=== PATIENT | female | born 2000 | race Two or more races ===

== ENCOUNTER → 2024-08-16 | Outpatient (CLI) | payer BC, MEDICAID, SELFPAY ==
--- NOTE | 2024-08-16 | XR_ITS ---
Examination: Sinus series 4 views TECHNIQUE: Corby Davila lateral submentovertex sinus series 4 views Date and time: August 16, 2024 0756 hours INDICATIONS: Headaches dizziness sinus pressure and pain one month. FINDINGS: Significant opacity in the frontal ethmoid air cells Mild mucosal thickening maxillary antra No fluid levels No retention cysts IMPRESSION: Chronic sinusitis as above, prominent in the frontal and ethmoid air cells
== END | disposition home or self-care (01) ==
PROVIDERS: PCP Nurse Practitioner Family; Referring Provider Nurse Practitioner Family; Visit Provider Nurse Practitioner Family
DX: J32.9 Chronic sinusitis, unspecified (principal)
CPT/HCPCS: 70220

== ENCOUNTER 2024-09-22 14:00 | Emergency (ER) | payer MEDICAID, SELFPAY ==
[2024-09-22 14:00] VITALS: BMI 37.2
--- NOTE | 2024-09-22 14:04 | EKG_ITS ---
[facility] Test Date: 2024-09-22 Pat Name: KARI FERMIN Department: Room: - Gender: Female [employer] Worker: : 2000 Requested By: Angel Collins Order Number: [id number] Reading MD: Angel Collins Measurements Intervals [place] Rate: 70 P: 33 MD: 134 QRS: 1 QRSD: 97 T: 19 QT: 391 QTc: 424 Interpretive Statements SINUS RHYTHM No previous ECG available for comparison /store/S0/[id number]
--- NOTE | 2024-09-22 14:20 | XR_ITS ---
Examination: PA chest single view TECHNIQUE: Upright PA chest single view Date and time: September 22, 2024 1447 hours, comparison August 19, 2022 INDICATIONS: Headaches beginning 3 months ago chest pain today FINDINGS: Normal heart size. Lungs are clear. The osseous structures are intact IMPRESSION: No active disease
--- NOTE | 2024-09-22 14:22 | PD.EDADULT ---
ED General RME/HPI General Chief complaint: Chest Pain Stated complaint: CHEST PAIN X 1 DAY Time Seen by Provider: 09/22/24 14:20 Arrival date/time: 09/22/24 14:00 CC: Intermittent chest pain back pain abdominal pain with occasional headache. Onset day and a half ago. Patient denies heavy lifting trauma blunt trauma falls or repetitive motion. No prior history of similar events. Patient took Tylenol last night with minimal relief. Patient states chest pain is worse with exhalation. Pain is reproducible with palpation Related Data Allergies Allergy/AdvReac Type Severity Reaction Status Date / Time No Known Allergies Allergy Verified 09/22/24 14:03 Review of Systems Review of Systems Narrative Review of Systems: GEN: No fever, no chills, no weight loss EYES: No discharge, no visual changes, no pain HEENT: No ear pain, no congestion, no sore throat PULM: No shortness of breath, no cough, no congestion CV: + chest pain, no dyspnea on exertion, no palpitations GI: No nausea, no vomiting, no diarrhea, no pain, no constipation : No frequency, no urgency, no dysuria MUSC/SKEL: No joint pain, no back pain SKIN: No rash PSYCH: No hallucinations, no depression HEME/LYMPH: No easy bleeding or bruising tendencies NEURO: No weakness, no headache Past Medical History Social History SMOKING STATUS: Never smoker ED Exam Narrative Physical exam: [General: Obese, anxious, in mild discomfort but not in any acute distress Head normocephalic HEENT: Within acceptable limits Neck is supple nontender Chest equal chest rise tender to palpation Respiratory: Clear to auscultation no wheezes crackles or rubs CV: Rate rhythm is regular no murmurs rubs or clicks Abdomen is distended secondary to body habitus soft nontender no masses positive bowel sounds all 4 quadrants Back: Global upper back tenderness to palpation. No CVA tenderness no spinous process tenderness from cervical spine thoracic and lumbar spine Skin: Intact no petechiae rash induration ulceration or crepitus Extremities: Moving all extremity against resistance cap refill less than 2 seconds neurosensory intact Neuro: Awake alert oriented x3 Glascow coma 15 no focal deficits] Course Quality Measures none Orders Category Date Time Status EKG (ED ONLY) *Do not use* NOW Care 09/22/24 14:04 Completed CXR [XR chest 1V] Stat Exams 09/22/24 14:20 Completed EKG (ED Only) Stat Exams 09/22/24 14:04 Draft HCG Qualitative,Urine Stat Lab 09/22/24 14:44 Completed Troponin I Stat Lab 09/22/24 14:28 Completed Urinalysis, C/S if Indicated Stat Lab 09/22/24 14:44 Completed Acetaminophen Tab [Tylenol ES Tab] Med 09/22/24 14:21 Discontinued 1,000 mg PO X1 ONE Discharge Plan Plan Patient Disposition: HOME (Self Care) Patient condition on transfer: Stable Prescriptions/Referrals Referrals: Shaylee Fiore NP [Primary Care Provider] - In 1 week Problem List Clinical Impression: Atypical chest pain Patient/Caregiver Discharge Instructions Other Activity Instructions:: Take extra strength Tylenol, 500 mg, every 8 hours 8 AM 4 PM and midnight you can double up to 1 g if necessary for the next 3 to 5 days. Follow-up with your primary care provider if there is worsening symptoms in spite of the medications return the emergency room for further evaluation. Education Materials: ED Chest Pain, Uncertain Cause Print Language: Lao Stand Alone Forms: [employer] Award Info., Work/School Release, Patient Portal Info Letter PA/LILY Supervising Physician PA/SHIPPING AND RECEIVING WEIGHER Supervising Physician: Sami Welsh ENP [facility] Labs/Rad/Tests considered, not Ordered Describe details: Troponin is negative urine is negative although I suspect it is more of a contaminated catch EKG EKG Interpretation narrative: EKG performed at 1411 shows a ventricular rate of 70 CO interval 134 QRS of 97 QTc of 412 normal sinus rhythm. Imaging Provider imaging interpretation(s): Chest x-ray as interpreted by me read by radiology is negative for any acute finding. Medication Administration(s) Medication Administration History Discontinued Medications Acetaminophen (Acetaminophen 500 Mg Tablet) 1,000 mg PO X1 ONE Stop: 09/22/24 14:22 Last Admin: 09/22/24 14:33 Dose: 1,000 mg Documented By: OA Patient has had significant improvement with Tylenol and the pain, the patient is not in any acute distress with stable vital signs we will discharge the patient home with chest pain.
[2024-09-22] MEDS: ACETAMINOPHEN 500 MG TABLET 1000 MG PO (14:33)
[2024-09-22 14:55] LABS: Collection Type, Urine Clean Catch
[2024-09-22 15:17] LABS: Bacteria,Urine Rare; Bilirubin,Urine Negative (Negative); Blood,Urine 2+ (Negative); Color,Urine Yellow (Lt Yel-Yel); Culture Indicated,Urine Not Indicated; Glucose, Urine Negative (Negative); Ketones,Urine Negative (Negative); Leukocyte Esterase,Urine Positive (Negative); Nitrite,Urine Negative (Negative); PH,Urine 6.5 (5.0-7.0); Protein,Urine Negative (Neg - Trace); RBC,Urine 18 /hpf (0-3); Specific Gravity,Urine 1.024 (1.001-1.035); Squamous Epithelial Cell,Urine 25 /hpf (0-5); Urobilinogen,Urine Negative mg/dL (0.0-1.0); WBC,Urine 2 /hpf (0-5)
[2024-09-22 15:18] LABS: HCG Qualitative,Urine Negative
[2024-09-22 15:18] LABS: Troponin I < 0.002 ng/mL (0.0-0.045)
[2024-09-22 15:40] LABS: Clarity,Urine Hazy (Clear/Hazy)
== END 2024-09-22 16:04 | disposition home or self-care (01) ==
PROVIDERS: Registered Nurse General Practice; Emergency Provider Family Medicine; PCP Nurse Practitioner Family
DX: R07.89 Other chest pain (principal); R51.9 Headache, unspecified
CPT/HCPCS: 36415; 71045; 81001; 81025; 84484; 93005; 99283; A9270

== ENCOUNTER → 2025-01-05 | Outpatient (CLI) | payer MEDICAID, SELFPAY ==
--- NOTE | 2025-01-05 10:21 | XR_ITS ---
EXAMINATION: Cervical spine, 5 views Technique: Cervical spine AP, AP odontoid, lateral, bilateral obliques, 5 views Exam date and time: January 05, 2025, 10:58 a.m. INDICATIONS: Neck pain beginning 2 months ago. FINDINGS: Satisfactory alignment cervical vertebral bodies. No cervical fracture. Intact odontoid. No significant neuroforaminal stenosis No cervical disc narrowing IMPRESSION: No cervical fracture or significant arthritic change
== END | disposition home or self-care (01) ==
LOC: CDIM 09:49
PROVIDERS: PCP Nurse Practitioner Family; Referring Provider Nurse Practitioner Family; Visit Provider Nurse Practitioner Family
DX: M54.2 Cervicalgia (principal)
CPT/HCPCS: 72050

== ENCOUNTER → 2025-01-16 | Outpatient (CLI) | payer MEDICAID, SELFPAY ==
--- NOTE | 2025-01-16 | XR_ITS ---
EXAMINATION: Sacroiliac joints bilateral 3 views TECHNIQUE: AP, RPO LPO sacroiliac joints 3 views Date and time: January 16, 2025, 0800 hours INDICATIONS: Lower back and sacral pain joint locking 1 year FINDINGS: Bilateral moderate sacroiliitis, sclerosis and radiolucency or erosions involving the sacroiliac joints Symmetrical sacral foramina No fractures IMPRESSION: Bilateral moderate sacroiliitis
--- NOTE | 2025-01-16 | XR_ITS ---
EXAMINATION: XR lumbar spine 2-3V ORDERING PROVIDER: SEYMOUR SMITH HISTORY: PAIN TECHNIQUE: 3 radiographs of the lumbar spine. COMPARISON: 09/22/2024, chest radiographs. FINDINGS: VERTEBRAE: 5 lumbar-type vertebral bodies. Normal height. No acute fracture. ALIGNMENT: Very subtle levoconvex curvature of the upper lumbar spine, favored to be positional based on prior chest imaging. DISC SPACES: Preserved. OSSEOUS DEGENERATIVE: None. SURROUNDING TISSUES: Normal. IMPRESSION: 1. Negative lumbar spine radiographs.
== END | disposition home or self-care (01) ==
LOC: CDIM 07:44
PROVIDERS: PCP Nurse Practitioner Family; Referring Provider Nurse Practitioner; Visit Provider Nurse Practitioner
DX: M46.1 Sacroiliitis, not elsewhere classified (principal); M54.50 Low back pain, unspecified
CPT/HCPCS: 72100; 72202

== ENCOUNTER 2025-02-07 11:15 | Outpatient (RCR) | payer MEDICAID, SELFPAY ==
--- NOTE | 2025-02-07 14:15 | PT.OIERPT ---
PT OP Initial Eval Patient Information Outpatient Physical Therapy Treatment Date: 02/07/25 Visit Reasons: PAIN IN UNSPECIFED SHOULDER Medical Diagnosis: M25.519 Treatment Dx #1: Bilateral Shoulder Pain Start of Care: 02/07/25 Date of Onset: June 2024 Smoking Status Smoking Status: Never smoker Initial Assessment Subjective: Pt is a 24 y/o female reports of pain in multiples sites. Pt mentioned her back and shoulder hurts the most and pain started after she got sick since June 2024. Pt has seen multiple specialists which can not determine her nature of pain. Pt has limitation with walking, standing, sitting, liftijng, overhead motions, and performing recreational activities. At this time Pt's back hurts more than the shoulders. Objective: Bilateral Shoulder AROM: all motions are WNL Bilateral Shoulder MMTs: grossly 4-/5 Bilateral Scapula MMTs: grossly 3+/5 Assessment: Pt demonstrate functional shoulder AROM and strength, however, pain in the shoulder is not consistent. During initial evaluation Pt's arm movements cause pain in the lower back. Pt advised to follow up with PCP to consult further regarding reported pain sites. Pt will not benefit from physical therapy at this time and will follow up with provider; thank you for your referrals. Short Term and Ultrasonic Tester Goals 1) Eval and D/C 2) Follow up with PCP PRN Treatment Plan Frequency and Duration: 1x Certification Dates: 02/07/25 to 05/08/25 Procedure Charges OP PT Eval Mod Complex 30 minutes: Yes
== END 2025-02-21 23:59 | disposition home or self-care (01) ==
LOC: CPTX 11:15
PROVIDERS: PCP Nurse Practitioner Family; Referring Provider Nurse Practitioner Family; Visit Provider Nurse Practitioner Family
DX: M25.512 Pain in left shoulder (principal); M25.511 Pain in right shoulder; M54.50 Low back pain, unspecified
CPT/HCPCS: 97162